=== PATIENT | male | born 1940 ===

== ENCOUNTER → 2025-03-12 | Emergency (ER) | payer SELFPAY ==
[~2025-03-12] VITALS: Ht 165.1 cm; Wt 64.4 kg
[2025-03-12 00:46] VITALS: BP 120/60; PULSE 65; RESP 20; TEMP 99.4
== END | disposition left against medical advice (07) ==
LOC: EDH 00:43
DX: R33.9 Retention of urine, unspecified (principal); Z53.21 Procedure and treatment not carried out due to patient leaving prior to being seen by health care provider